=== PATIENT | male | born 1995 | race Caucasian/White ===

== ENCOUNTER 2016-11-27 04:34 | Emergency (ER) | payer SELFPAY ==
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
== END 2016-11-27 05:54 | disposition home or self-care (01) ==
LOC: ERS 04:34
DX: S02.2XXA Fracture of nasal bones, initial encounter for closed fracture (principal); Y04.0XXA Assault by unarmed brawl or fight, initial encounter; Y92.59 Other trade areas as the place of occurrence of the external cause
CPT/HCPCS: 70486